=== PATIENT | male | born 1980 | race Caucasian/White ===

== ENCOUNTER 2019-10-02 10:58 | Emergency (ER) | payer OTHER ==
[~2019-10-02] VITALS: Ht 185.4 cm; Wt 158.8 kg
[2019-10-02] MEDS ORDERED: SERTRALINE HCL100 MG PO (11:11)
[2019-10-02] MEDS ORDERED: METFORMIN HCL500 M3 PO (11:11)
[2019-10-02] MEDS ORDERED: NORCO 5-325 TA1 EAC1 PO ×2 (11:11→14:23)
[2019-10-02] MEDS ORDERED: NORVASC 2.5 MG2.5 M1 PO (11:12)
[2019-10-02] MEDS ORDERED: LIPITOR10 MG PO (11:12)
[2019-10-02 11:40] LABS: ABSOLUTE BASOPHILS 0.1 thou/uL (0.0-0.2); ABSOLUTE EOSINOPHILS 0.2 thou/uL (0.0-0.7); ABSOLUTE LYMPHOCYTES 2.5 thou/uL (0.8-5.3); ABSOLUTE MONOCYTES 0.7 thou/uL (0.0-1.2); ABSOLUTE NEUTROPHILS 6.8 thou/uL (1.6-8.1); BASOPHILS 0.7 %; EOSINOPHILS 1.9 %; HEMATOCRIT 43.2 % (42.0-52.0); HEMOGLOBIN 14.6 gm/dL (14.0-18.0); LYMPHOCYTES 24.6 %; MCH 26.8 pg (26.0-34.0); MCHC 33.9 g/dL (28.0-37.0); MCV 79.2 fL (80.0-100.0); MONOCYTES 6.8 %; NUCLEATED RBCS 0 /100WBC; PLATELET COUNT* 332 thou/uL (150-400); RBC 5.45 mil/uL (4.50-6.00); RDW-CV 14.5 % (10.5-14.5); WBC 10.3 thou/uL (4.0-11.0)
[2019-10-02 11:43] LABS: CALCIUM 8.3 mg/dL (8.5-10.1); POTASSIUM 3.5 mmol/L (3.5-5.1)
[2019-10-02 11:53] LABS: ALBUMIN 3.8 g/dL (3.4-5.0); MAGNESIUM 1.7 mg/dL (1.8-2.4); TOTAL BILIRUBIN 0.3 mg/dL (<0.1-1.0)
[2019-10-02 14:47] VITALS: BP 124/77
--- NOTE | 2019-10-02 15:32 | EKG ---
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
== END 2019-10-02 14:48 | disposition home or self-care (01) ==
LOC: M.ERS 10:58
PROVIDERS: Emergency Medicine Emergency Medical Services
DX: R07.89 Other chest pain (principal); I10 Essential (primary) hypertension; E11.9 Type 2 diabetes mellitus without complications; E78.00 Pure hypercholesterolemia, unspecified; Z87.442 Personal history of urinary calculi